=== PATIENT | female | born 1990 | race Caucasian/White ===

== ENCOUNTER 2016-07-26 11:10 | Emergency (ER) | payer OTHER ==
[~2016-07-26] VITALS: Wt 63.5 kg
[2016-07-26] MEDS ORDERED: AZIT500T3 PO (12:22)
[2016-07-26] MEDS ORDERED: IBUP-1542 PO (12:22)
[2016-07-26] MEDS ORDERED: PENICILLIN G BENZ 1.2 MIL UNIT SYG IM ONE (12:30)
[2016-07-26] MEDS ORDERED: LIDOCAINE 1% (MDV) 20 ML INJ SC ONE (12:30)
--- NOTE | 2016-07-26 14:44 | ERD ---
ER Documentation Chief Complaint Date/Time DATE: 07/26/16 TIME: 14:35 Chief Complaint SORE THROAT X 5 DAYS HPI 26-year-old woman complains of sore throat 5 days with intermittent fevers. She denies difficulty swallowing, no difficulty speaking, no rash, no discharge from the conjunctiva, no vaginal discharge or bleeding, no dysuria, no weight loss, no complaints of chest pain or shortness of breath. ROS All systems reviewed and are negative except as per history of present illness. Medications Home Meds Active Scripts Ibuprofen* (Ibuprofen*) 600 Mg Tablet, 600 MG PO Q8 for PAIN AND/OR INFLAMMATION , #30 TAB Prov:ETHAN HAM MD 07/26/16 Azithromycin* (Zithromax*) 500 Mg Tablet, 500 MG PO DAILY for 5 Days, TAB Prov:ETHAN HAM MD 07/26/16 Allergies Allergies: Coded Allergies: No Known Allergy (Unverified , 07/26/16) PMhx/Soc History of Surgery: No Anesthesia Reaction: No Hx Neurological Disorder: No Hx Respiratory Disorders: No Hx Cardiac Disorders: No Hx Psychiatric Problems: No Hx Miscellaneous Medical Probl: No Hx Alcohol Use: No Hx Substance Use: No Hx Tobacco Use: No Smoking Status: Never smoker FmHx Family History: No diabetes Physical Exam Vitals Vital Signs Date Time Temp Pulse Resp B/P Pulse Ox O2 Delivery O2 Flow Rate FiO2 07/26/16 11:26 99.9 71 18 121/71 99 Physical Exam GENERAL: Well-developed, well-nourished, well-hydrated, in no apparent distress , looks nontoxic in appearance HEENT: Moist mucous membranes, bilateral pharyngeal erythema with exudates, uvula is midline, no goiter, no jaundice or icterus, extraocular movements intact without pain. No submandibular induration. NEURO: Alert and oriented 3, cranial nerves II through XII intact bilaterally, pupils equal round reactive to light, no focal deficits or facial asymmetry, sensation intact distally Strength 5/5 in upper and lower extremities bilaterally CARDIAC: Regular rate and rhythm, no murmurs rubs or gallops LUNGS: Clear bilaterally no wheezing crackles or stridor ABDOMEN: Soft nontender, no guarding, no rigidity, no rebound, no psoas sign no obturator sign. Normoactive bowel sounds SKIN: Warm and dry to touch, no abrasions, contusions, or hematomas, no lacerations, no ecchymosis, no target lesions, and without ulcers EXTREMITIES: No clubbing cyanosis or edema, calves are bilaterally symmetrical, no Homans sign, no popliteal cord sign. Distal pulses equal and bilateral PSYCH: Normal affect without agitation or irritability Results 24 hrs Current Medications Medications (Trade) Dose Ordered Sig/Oanh Route PRN Reason Start Time Stop Time Status Last Admin Dose Admin Penicillin G Benzathine (Bicillin La) 1,200,000 units ONCE ONCE IM 07/26/16 12:30 07/26/16 12:31 DC 07/26/16 12:40 Lidocaine (Xylocaine 1% (Mdv) 20 ml) 20 ml ONCE ONCE SC 07/26/16 12:30 07/26/16 12:31 DC Procedures/MDM I offered oral antibiotics although patient stated she wanted an intramuscular injection. I administered Bicillin LA 1.2 million units IM 1. Patient was eating spicy hot fruit bowl while in the ED without difficulty and has no difficulty swallowing or speaking. No indication for any further intervention imaging or admission. Differential diagnoses considered, included but not limited to peritonsillar abscess, coxsackie infection, sepsis, stroke, meningitis, encephalitis, pneumonia, appendicitis, cholecystitis, bowel obstruction, pyelonephritis, nephrolithiasis, cystitis, as well as metabolic, hematologic, and electrolyte abnormalities. As well as abscess, cellulitis, fractures, and dislocations. Patient feels much better at this time, and vital signs are normal, symptoms have improved. I did give strict instructions to return to the ED if symptoms continue or worsen, patient will otherwise follow-up with primary care physician. Patient understood instructions and agreed to plan. Departure Diagnosis: Primary Impression: Strep pharyngitis Condition: Good Patient Instructions: Pharyngitis, Strep (Confirmed) ETHAN HAM MD Jul 26, 2016 14:44
== END 2016-07-26 12:53 | disposition home or self-care (01) ==
LOC: FTE 11:10
DX: J02.0 Streptococcal pharyngitis (principal)
CPT/HCPCS: 96372; J0561; Z7502

== ENCOUNTER 2016-11-04 11:11 | Emergency (ER) | payer OTHER ==
[~2016-11-04] VITALS: Ht 160 cm; Wt 65.0 kg
[~2016-11-04 11:11] MED LIST: AZIT500T3 PO; IBUP-1542 PO
[2016-11-04 11:17] VITALS: Ht 160 cm; Wt 65.0 kg
[2016-11-04] MEDS ORDERED: FLUORESCEIN STRIP RIGHT EYE ONE (12:00)
[2016-11-04] MEDS ORDERED: TETRACAINE 0.5% 4 ML OPH RIGHT EYE ONE (12:00)
[2016-11-04] MEDS ORDERED: TBR.3OO RIGHT EYE (12:29)
--- NOTE | 2016-11-04 12:39 | ERD ---
ER Documentation Chief Complaint Date/Time DATE: 11/04/16 TIME: 12:35 Chief Complaint PT with R eye pain and erythema X 2 weeks. HPI This is a 26-year-old female that presents to the ER with a 2 week history of right eye itchiness and clear discharge. Patient states that her eye feels as if there is something in the eye. A week ago she went to her doctor she was given drops for her eyes however she still feels the same way. Patient denies any redness to the eye. She denies any vision loss, vision changes. She denies any fevers or chills. She denies any headache. She denies any photophobia. She denies any nausea or vomiting. She denies any trauma to the eye. ROS 12 point review of systems was done, all negative except per HPI. Medications Home Meds Active Scripts Tobramycin Sulfate* (Tobrex*) 3.5 Gm Oint..gm., 1 APPLIC RIGHT EYE TID for 7 Days, EA Prov:AARTI MARROQUIN 11/04/16 Ibuprofen* (Ibuprofen*) 600 Mg Tablet, 600 MG PO Q8 for PAIN AND/OR INFLAMMATION , #30 TAB Prov:ETHAN HAM MD 07/26/16 Azithromycin* (Zithromax*) 500 Mg Tablet, 500 MG PO DAILY for 5 Days, TAB Prov:ETHAN HAM MD 07/26/16 Allergies Allergies: Coded Allergies: No Known Allergy (Unverified , 07/26/16) PMhx/Soc Medical and Surgical Hx: pt denies Medical Hx, pt denies Surgical Hx History of Surgery: No Anesthesia Reaction: No Hx Neurological Disorder: No Hx Respiratory Disorders: No Hx Cardiac Disorders: No Hx Psychiatric Problems: No Hx Miscellaneous Medical Probl: No Hx Alcohol Use: No Hx Substance Use: No Hx Tobacco Use: No Physical Exam Vitals Vital Signs Date Time Temp Pulse Resp B/P Pulse Ox O2 Delivery O2 Flow Rate FiO2 11/04/16 11:17 97.8 65 18 109/69 99 Physical Exam GENERAL: The patient is well developed and appropriate for usual state of health , in no apparent distress. HEENT: Atraumatic. Right eye: Conjunctiva does not have any erythema or injection. Extraocular movements are intact and nonpainful. PERRLA. No periorbital soft tissue swelling erythema or warmth. No ecchymosis. No photophobia. No subconjunctival hemorrhage. No obvious foreign body auricle disruption. CHEST: Clear to auscultation bilaterally. There are no rales, wheezes or rhonchi. HEART: Regular rate and rhythm. No murmurs, clicks, rubs or gallops. NEURO: Alert and oriented. Results 24 hrs Current Medications Medications (Trade) Dose Ordered Sig/Oanh Route PRN Reason Start Time Stop Time Status Last Admin Dose Admin Tetracaine HCl (Tetracaine 0.5% Steri-Unit [place]) 1 drop ONCE ONCE RIGHT EYE 11/04/16 12:00 11/04/16 12:01 DC Fluorescein Sodium ([id number]) 1 strip ONCE ONCE RIGHT EYE 11/04/16 12:00 11/04/16 12:01 DC Procedures/MDM Subconjunctival hemorrhage, bacterial conjunctivitis, viral conjunctivitis, allergic conjunctivitis,orbital cellulitis, hyphema, corneal abrasion, keratitis , uveitis, angle-closure glaucoma, retinal detachment, ruptured globe. This is likely: Allergic conjunctivitis versus bacterial conjunctivitis. Patient was examined with fluorescein staining there is no evidence of corneal abrasion, corneal ulceration, foreign body. Suspicion for angle closure glaucoma is low. Suspicion for retinal detachment is low. His visual acuity was completely normal and she is not complaining. Patient does not complain of any eyeball pain. Patient will be sent home with tobramycin, she was told to follow-up at [facility] today. Patient understands and agrees with plan. She is to return to ER sooner if symptoms worsen. My medical decision making shared with the patient understands and agrees with plan Departure Diagnosis: Primary Impression: Pain in eye Condition: Stable Patient Instructions: Understanding Red Eye: Causes Referrals: [facility] Hours: Mon - Fri 9:00 AM - 5:00 PM Additional Instructions: Call your primary care doctor TOMORROW for an appointment during the next 1-2 days.See the doctor sooner or return here if your condition worsens before your appointment time. PLEASE FOLLOW UP WITH [facility] AARTI SAUER Nov 04, 2016 12:39
== END 2016-11-04 12:37 | disposition home or self-care (01) ==
LOC: FTE 11:11
DX: H57.11 Ocular pain, right eye (principal)
CPT/HCPCS: Z7502; Z7610; 99283

== ENCOUNTER 2016-11-14 21:28 | Emergency (ER) | payer OTHER ==
[~2016-11-14] VITALS: Wt 66.0 kg
[~2016-11-14 21:28] MED LIST changes: +TBR.3OO RIGHT EYE
[2016-11-15] MEDS ORDERED: BEN25 PO (00:20)
[2016-11-15] MEDS ORDERED: NAPH15DR OP (00:20)
--- NOTE | 2016-11-15 00:32 | ERD ---
ER Documentation Chief Complaint Date/Time DATE: 11/15/16 TIME: 00:28 Chief Complaint right eye pain and itchiness HPI Is a 26-year-old female who presents the emergency department today complaining of right eye redness and itchiness for the past 3 weeks. Patient states that she took the medicine she was prescribed before. States that she has taken Xyzal. States that there is itchiness on the skin under her eye. Denies any fevers or chills, blurred vision, pain in her eye ROS All systems reviewed and are negative except as per history of present illness. Medications Home Meds Active Scripts Diphenhydramine Hcl* (Benadryl*) 25 Mg Cap, 25 MG PO Q6, #30 CAP Prov:CALE CARVER PA-C 11/15/16 Naphazoline Hcl/Phenir Mal (Naphcon-A Eye Drops) 15 Ml Drops, 15 ML OP Q6 for 7 Days, #1 BOTTLE Prov:CALE CARVER PA-C 11/15/16 Tobramycin Sulfate* (Tobrex*) 3.5 Gm Oint..gm., 1 APPLIC RIGHT EYE TID for 7 Days, EA Prov:AARTI MARROQUIN 11/04/16 Ibuprofen* (Ibuprofen*) 600 Mg Tablet, 600 MG PO Q8 for PAIN AND/OR INFLAMMATION , #30 TAB Prov:ETHAN HAM MD 07/26/16 Azithromycin* (Zithromax*) 500 Mg Tablet, 500 MG PO DAILY for 5 Days, TAB Prov:ETHAN HAM MD 07/26/16 Allergies Allergies: Coded Allergies: No Known Allergy (Unverified , 07/26/16) PMhx/Soc Medical and Surgical Hx: pt denies Medical Hx, pt denies Surgical Hx History of Surgery: No Anesthesia Reaction: No Hx Neurological Disorder: No Hx Respiratory Disorders: No Hx Cardiac Disorders: No Hx Psychiatric Problems: No Hx Miscellaneous Medical Probl: No Hx Alcohol Use: No Hx Substance Use: No Hx Tobacco Use: No Smoking Status: Never smoker Physical Exam Vitals Vital Signs Date Time Temp Pulse Resp B/P Pulse Ox O2 Delivery O2 Flow Rate FiO2 11/14/16 21:37 97.2 52 18 115/66 100 Physical Exam Const: No acute distress Head: Atraumatic Eyes: Right eye with conjunctival erythema. PERRLA. EOM intact ENT: Normal External Ears, Nose and Mouth. Neck: Full range of motion..~ No meningismus. Resp: Clear to auscultation bilaterally Cardio: Regular rate and rhythm, no murmurs Skin: No petechiae or rashes Neur: Awake and alert Psych: Normal Mood and Affect Procedures/MDM This a 26-year-old female presents emergency department today complaining of right eye redness and itching for the past 3 weeks. Upon review of patient's medical record she was seen here on November 04, 2016 and had a floor seen eye stain done at that time and was given a prescription for tobramycin however there was no evidence of corneal abrasion or foreign body at that time. Patient was instructed to go to [facility]. Upon questioning today patient indicated she did not go there because she was told that she needed a referral from her primary care doctor. I did ask patient if she had followed up with her primary care doctor and she said that she did not call her until today. She states that she was unable to reach her primary care doctor. Patient indicates that the itchiness and redness is getting slightly worse and in the skin under her eyes now itchy. Visual acuity Right eye 20/20 Left eye 20/20 Bilateral 2020 Patient symptoms at this time appear to be allergy related to her given her skin underneath her eye is itching versus dry eye. She was given a prescription for Naphcon and some Benadryl. I did explain to the patient that she does need to see an dispatcher service. I have low suspicion for acute narrow glaucoma, foreign body, hyphema, globe rupture. At this time the patient is stable for discharge and outpatient management. Patient should follow up with their PCP in the next 1-2 days. They may return to the emergency department sooner for any persistent or worsening of symptoms. Patient understood and agreed with the plan. . Departure Diagnosis: Primary Impression: Eye problem Condition: Fair Patient Instructions: Conjunctivitis, Allergic Referrals: your PCP [facility] Hours: Mon - Fri 9:00 AM - 5:00 PM Additional Instructions: Call your primary care doctor TOMORROW for an appointment during the next 1-2 days.See the doctor sooner or return here if your condition worsens before your appointment time. Make an appointment with ophthalmology specialist Use Naphcon drops Continue using Xyzal Take Benadryl at night only CALE CARVER PA-C Nov 15, 2016 00:32
== END 2016-11-15 00:59 | disposition home or self-care (01) ==
LOC: FTE 21:28
DX: H57.8 Other specified disorders of eye and adnexa (principal)
CPT/HCPCS: 99283